=== PATIENT | male | born 1960 | race Hispanic/Latino ===

== ENCOUNTER 2019-02-21 12:45 | Inpatient (IN) ==
[2019-02-21] MEDS ORDERED: ASPIRIN PO ONE (13:00)
[2019-02-21] MEDS ORDERED: TORADOL IV ONE ×2 (13:29→23:46)
[2019-02-21] MEDS ORDERED: NORFLEX IV ONE (13:29)
[2019-02-21] MEDS ORDERED: NS 1,000 ML IV ONE ×2 (13:29→16:32)
--- NOTE | 2019-02-21 13:29 | Diag Imaging Result Doc PS360 ---
EXAM: CHEST-2 VIEWS HISTORY: CP TECHNIQUE: Two views COMPARISON: None. FINDINGS: Poor inspiratory effort. The heart is not enlarged. The vessels are not distended. There are no infiltrates. No pleural effusions. IMPRESSION: No acute abnormality. Electronically signed by Kristopher Reid 02/21/2019 1:27 PM
[2019-02-21 13:50] LABS: ALLEN TEST NO; BLOOD TYPE ARTERIAL; HCO3-(ACT) 13.9 mmoll (20.0-26.0); O2(CT) 21.9 mL/dL (15.0-23.0); O2HB 95.6 % (95.0-99.0); PCO2(98.6) 20 mmHg (35-45); PO2(98.6) 91 mmHg (60-100); SAMPLE BLOOD; THB 16.3 g/dL (11.5-17.4)
[2019-02-21 13:51] LABS: MODALITY ROOM AIR
[2019-02-21 14:50] LABS: BASO# 0.01 X1000 (0.0-0.2); BASO% 0.1 % (0.0-0.8); EOS# 0.02 X1000 (0.0-0.7); EOS% 0.2 % (0.0-10.0); HEMATOCRIT 44.9 % (42.0-52.0); HEMOGLOBIN 14.7 g/dL (14.0-18.0); IMM GRAN# 0.17 X1000 (0.0-0.04); IMM GRAN% 1.5 % (0.0-0.5); LYMPH# 0.46 X1000 (1.2-3.4); LYMPH% 4.1 % (20.5-51.1); MCH 30.6 PG (27-31); MCHC 32.7 g/dL (33-37); MCV 93.3 FL (81-99); MONO# 1.08 X1000 (0.11-0.59); MONO% 9.6 % (1.7-9.3); MPV 10.5 FL (7.4-10.4); NEUT# 9.48 X1000 (1.4-6.5); NEUT% 84.5 % (42.2-75.2); PLT 376 X1000 (130-400); RBC 4.81 XMIL (4.7-6.1); RDW 11.6 % (11.5-14.5); WBC 11.22 X1000 (4.8-10.8)
[2019-02-21 14:56] LABS: INR 1.07; PROTIME 14.1 Seconds (11.0-16.0)
[2019-02-21 14:57] LABS: PTT 27.6 Seconds (22.3-41.8)
[2019-02-21 15:29] LABS: AGAP 29; ALB/GLOB RATIO 1.1; ALBUMIN 3.3 g/dL (3.5-5.0); ALKALINE PHOSPHATASE 168 U/L (32-122); BUN 22 mg/dL (8-22); CALCIUM 9.1 mg/dL (8.8-10.2); CHLORIDE 85 mmol/L (98-107); CK PROFILE 28 U/L (24-204); COSMO 276; ESTIMATED GFR > 60; GLUCOSE 448 mg/dL (70-104); GOT 9 U/L (10-34); GPT 14 U/L (10-44); POTASSIUM 4.6 mmol/L (3.5-5.1); SODIUM 126 mmol/L (136-145); TCO2 12 mmol/L (25-35); TOTAL BILIRUBIN 0.17 mg/dL (0.20-1.00); TOTAL PROTEIN 6.3 g/dL (6.3-8.3)
[2019-02-21] MEDS ORDERED: HUMULIN R IV ONE (15:35)
[2019-02-21 15:48] LABS: ACETONE SERUM MODERATE (NEGATIVE)
[2019-02-21 15:57] LABS: C REACTIVE PROT QUANT 107.56 mg/L (0.00-5.00)
[2019-02-21 16:02] LABS: SED RATE 74 mm/hr (0-15)
--- NOTE | 2019-02-21 16:22 | EKG Report ---
Test Performed on : 02/21/2019 12:52:12 PM Test Reason : CP Blood Pressure : / mmHG Vent. Rate : 107 BPM Atrial Rate : 107 BPM P-R Int : 120 ms QRS Dur : 068 ms QT Int : 344 ms P-R-T Axes : 063 038 033 degrees QTc Int : 459 ms Sinus tachycardia. Otherwise normal ECG When compared with ECG of 19-FEB-2019 01:57, (Unconfirmed) Nonspecific T wave abnormality no longer evident in Anterior leads Unconfirmed Result
[2019-02-21] MEDS ORDERED: SODIUM PHOSPHATE 30 MMOL in D5W 250 ML IV PRN (16:32)
[2019-02-21] MEDS ORDERED: SODIUM BICARBONATE 8.4% 100 MEQ in STERILE WATER INJ. 500 ML IV PRN (16:32)
[2019-02-21] MEDS ORDERED: MAGNESIUM SULFATE 2 GM/S.W.I. 2 GM/50 ML IVPB IV PRN ×2 (16:32→22:36)
[2019-02-21] MEDS ORDERED: POTASSIUM CHLORIDE 20% LIQUID PO PRN ×2 (16:32→22:36)
[2019-02-21] MEDS ORDERED: POTASSIUM CHLORIDE 10% LIQUID PO PRN (16:32)
[2019-02-21] MEDS ORDERED: D50W SYRINGE IV PRN ×2 (16:32→22:36)
[2019-02-21] MEDS ORDERED: POTASSIUM CHLORIDE 20 MEQ/SWI 20 MEQ/100 ML IVPB IV PRN ×3 (16:32→22:36)
[2019-02-21 17:54] LABS: PHOSPHORUS 2.1 mg/dL (2.7-4.5); POTASSIUM 4.4 mmol/L (3.5-5.1)
[2019-02-21 17:55] LABS: UR AMPHETAMINES QUAL NONE DETECTED (NONE DETECT); UR BARBITUATES QUAL NONE DETECTED (NONE DETECT); UR BENZODIAZEPIN QUAL NONE DETECTED (NONE DETECT); UR CANNABINOIDS QUAL NONE DETECTED (NONE DETECT); UR COCAINE QUAL NONE DETECTED (NONE DETECT); UR METHADONE QUAL NONE DETECTED (NONE DETECT); UR OPIATES QUAL NONE DETECTED (NONE DETECT); UR OXYCODONE QUAL NONE DETECTED (NONE DETECT); UR PCP QUAL NONE DETECTED (NONE DETECT)
--- NOTE | 2019-02-21 18:14 | PROVIDER DOCUMENTATION ---
This chart was entered by Bassam Sharma Scribe, acting as scribe for Samuel Santiago MD. HPI-Musculoskeletal Pain/Inj - GENERAL Source: patient - HX OF PRESENT ILLNESS-MUSKULOSKELTAL Quality of Pain: reports: aching Severity in ED: moderate Onset/Duration: other (8 days ago) Timing: still present Modifying Factors: improves with: nothing Any recent injury?: No Similar Symptoms Previously?: No Recently seen or treated by another doctor?: No <Samuel Santiago - Last Filed: 02/21/19 18:51> <Brooklynn Dumas - Last Filed: 02/21/19 20:00> - GENERAL Chief Complaint: Chest Pain Stated Complaint: CP Time Seen by Provider: 02/21/19 13:15 - HX OF PRESENT ILLNESS-MUSKULOSKELTAL Nature of Presenting Problem: Pt is a 58 y/o M presents to the ED with right chest wall tenderness that began 8 days ago. Pt report he was seen 1 week ago in [place] ED, then here at [facility] 4 days ago, and transfered to [facility]. Papers report he was dx with chest wall tenderness and Myocitis and given Predinsone and Naproxen but pt reports it is not helping. (Samuel Santiago) Review of Systems - Adult - REVIEW OF SYSTEMS - ADULT Constitutional: denies: chills, fever Eyes: reports: no symptoms reported Ears, Nose, Mouth & Throat: reports: no symptoms reported Cardiovascular: denies: chest pain, edema Respiratory: denies: cough, shortness of breath, wheezing Gastrointestinal: denies: abdominal pain, nausea, vomiting Genitourinary: denies: dysuria, discharge Musculoskeletal: reports: bone pain (right chest wall). denies: back pain, joint pain Integumentary: reports: no symptoms reported Neurological: denies: ataxia, dizziness/vertigo Psychiatric: reports: no symptoms reported Endocrine: reports: no symptoms reported Hematologic/Lymphatic: reports: no symptoms reported Allergic/Immunologic: reports: no symptoms reported All Other Systems: Reviewed and Negative <Samuel Santiago - Last Filed: 02/21/19 18:51> Past History - Adult - PAST MEDICAL HISTORY-ADULT Review of Records: reports: Old Records Reviewed, Nursing Assessment Review, Medications Reviewed Endocrine/Immune: reports: Diabetes <Samuel Santiago - Last Filed: 02/21/19 18:51> Physical Exam-Injury Related - Physical Exam-Injury Related Initial Vital Signs Reviewed: Yes General Appearance: alert, no apparent distress Eyes: PERRL/EOMI, pink conjunctivae Head, Ears, Nose, Mouth & Throat: moist mucous membranes, normal ENT inspection, TMs normal, pharynx normal Neck: non-tender, full range of motion, supple, normal inspection Respiratory: lungs clear, normal breath sounds, no pleuratic chest pain, no respiratory distress, no accessory muscle use. negative: chest non-tender (right chest wall tender to mild palpation) Cardiovascular: normal peripheral pulses, regular rate, rhythm Abdominal Exam: normal bowel sounds, non tender, soft Extremity: normal range of motion, non-tender, normal gait, normal inspection Integumentary: normal color, warm/dry Neurologic: grossly normal, no motor/sensory deficits Psych/Mental Status: normal mood/affect, normal thought content, normal thought process, oriented x 3 <Samuel Santiago - Last Filed: 02/21/19 18:51> Progress - PLAN OF CARE/RESULTS Result Diagrams: 02/21/19 14:36 02/21/19 17:26 - EKG 1 Time of EKG reading by physician:: 12:52 EKG Read and Signed by:: Samuel Santiago EKG Interpretation (*Must complete 3 of following elements*): Abnormal Rate: 107 Rhythm: Sinus Tachycardia Comments: otherwise normal ECG - XRAY 1 XRAY Study: Chest Impression: Normal ( EXAM: CHEST-2 VIEWS HISTORY: CP TECHNIQUE: Two views COMPARISON: None. FINDINGS: Poor inspiratory effort. The heart is not enl arged. The vessels are not distended. There are no infiltrates. No pleural effusions. IMPRESSION: No acute abnormality. Electronically signed by Kristopher Reid 02/21/2019 1:27 PM 02/21/19 6712 Interpreting Physician: Kristopher Reid MD Dictated Date/Time: 02/21/19 1326 cc: Samuel Santiago MD; None,PCP) - CHANGE OF SHIFT REPORT (ED Provider) 1 Report Given and Care Transferred to:: Dr. Dumas Time of Transfer: 19:00 Items Pending: CT/MRI Results <Samuel Santiago - Last Filed: 02/21/19 18:51> - PLAN OF CARE/RESULTS Result Diagrams: 02/21/19 14:36 02/21/19 17:26 - REASSESSMENT Reassessment #1 Status: unchanged (pt signed out to me by Dr. Santiago pending CTA results. CTA unremarkable, pt with new onset DKA on fluids and inuslin gtt will admit for f urther evaluation and treatment) <Brooklynn Dumas - Last Filed: 02/21/19 20:00> - PLAN OF CARE/RESULTS Progress/Plan/Lab Results: Vital Signs - 8 hr 02/21/19 12:52 02/21/19 14:30 02/21/19 15:08 Temperature 97.9 F Pulse Rate 108 H 105 H 111 H Respiratory Rate 19 24 24 Blood Pressure 103/71 103/68 O2 Sat by Pulse Oximetry 98 100 100 02/21/19 15:11 02/21/19 16:00 02/21/19 16:46 Temperature 98 F Pulse Rate 104 H 105 H 112 H Respiratory Rate 18 24 23 Blood Pressure 103/68 111/66 111/66 O2 Sat by Pulse Oximetry 99 99 99 02/21/19 18:01 02/21/19 18:30 02/21/19 18:31 Temperature Pulse Rate 109 H 111 H 108 H Respiratory Rate 19 20 24 Blood Pressure 92/65 92/65 101/61 O2 Sat by Pulse Oximetry 96 100 97 02/21/19 19:00 02/21/19 19:30 02/21/19 19:45 Temperature Pulse Rate 111 H 103 H 104 H Respiratory Rate 19 21 22 Blood Pressure 113/61 O2 Sat by Pulse Oximetry 97 97 97 Laboratory Results - last 24 hr 02/21/19 02/21/19 02/21/19 13:40 14:36 14:36 WBC 11.22 H RBC 4.81 Hgb 14.7 Hct 44.9 MCV 93.3 MCH 30.6 MCHC 32.7 L RDW Std Deviation 11.6 Plt Count 376 MPV 10.5 H Immature Gran % (Auto) 1.5 H Neut % (Auto) 84.5 H Lymph % (Auto) 4.1 L Morrow % (Auto) 9.6 H Eos % (Auto) 0.2 Baso % (Auto) 0.1 Immature Gran # (Auto) 0.17 H Neut # (Auto) 9.48 H Lymph # (Auto) 0.46 L Morrow # (Auto) 1.08 H Eos # (Auto) 0.02 Baso # (Auto) 0.01 ESR 74 H PT INR PTT (Actin FS) Specimen Type ARTERIAL Sample Site L BRACHIAL pH 7.30 L pCO2 20 L pO2 91 HCO3 13.9 L Base Excess -14.0 L Oxyhemoglobin 95.6 ABG O2 Sat (Calculated) 21.9 ABG O2 Saturation 98.0 ABG Carboxyhemoglobin 1.30 ABG Methemoglobin 1.0 Yonas Test NO A-a O2 Difference 34.0 Total Hemoglobin 16.3 Lactate 1.60 Blood Gas Modality ROOM AIR FiO2 % 21.0 Sodium 126 L Potassium 4.6 Chloride 85 L Carbon Dioxide 12 L Anion Gap 29 BUN 22 Creatinine 1.0 Estimated GFR/1.73 m2 > 60 BUN/Creatinine Ratio 22 Glucose 448 H* POC Glucose Calculated Osmolality 276 Calcium 9.1 Phosphorus Magnesium Total Bilirubin 0.17 L AST 9 L ALT 14 Alkaline Phosphatase 168 H Creatine Kinase 28 Troponin T C-Reactive Prot, Quant 107.56 H Aob-E-Gdmhccvogjn Pept Total Protein 6.3 Albumin 3.3 L Globulin 3.0 Albumin/Globulin Ratio 1.1 Plasma Lactate Urine Source Urine Color Urine Turbidity Urine pH Ur Specific [place] Urine Protein Ur Glucose (Stick) Ur Ketones (Stick) Urine Blood Urine Nitrite Urine Bilirubin Urobilinogen Dipstick Urine Leukocytes Urine WBC (Auto) Urine RBC (Auto) U Epithel Cells (Auto) Urine Bacteria (Auto) Urine Opiates Screen Ur Oxycodone Screen Ur Methadone, Qual Ur Barbiturates Screen Ur Phencyclidine Scrn Ur Amphetamines Screen U Benzodiazepines Scrn Urine Cocaine Screen U Cannabinoids Screen Acetone Level MODERATE A 02/21/19 02/21/19 02/21/19 14:36 14:36 14:36 WBC RBC Hgb Hct MCV MCH MCHC RDW Std Deviation Plt Count MPV Immature Gran % (Auto) Neut % (Auto) Lymph % (Auto) [place] % (Auto) Eos % (Auto) Baso % (Auto) Immature Gran # (Auto) Neut # (Auto) Lymph # (Auto) Morrow # (Auto) Eos # (Auto) Baso # (Auto) ESR PT 14.1 INR 1.07 PTT (Actin FS) 27.6 Specimen Type Sample Site pH pCO2 pO2 HCO3 Base Excess Oxyhemoglobin ABG O2 Sat (Calculated) ABG O2 Saturation ABG Carboxyhemoglobin ABG Methemoglobin Yonas Test A-a O2 Difference Total Hemoglobin Lactate Blood Gas Modality FiO2 % Sodium Potassium Chloride Carbon Dioxide Anion Gap BUN Creatinine Estimated GFR/1.73 m2 BUN/Creatinine Ratio Glucose POC Glucose Calculated Osmolality Calcium Phosphorus Magnesium Total Bilirubin AST ALT Alkaline Phosphatase Creatine Kinase Troponin T < 0.010 C-Reactive Prot, Quant Tgt-Y-Qpyekpjmsto Pept 335 H Total Protein Albumin Globulin Albumin/Globulin Ratio Plasma Lactate Urine Source Urine Color Urine Turbidity Urine pH Ur Specific [place] Urine Protein Ur Glucose (Stick) Ur Ketones (Stick) Urine Blood Urine Nitrite Urine Bilirubin Urobilinogen Dipstick Urine Leukocytes Urine WBC (Auto) Urine RBC (Auto) U Epithel Cells (Auto) Urine Bacteria (Auto) Urine Opiates Screen Ur Oxycodone Screen Ur Methadone, Qual Ur Barbiturates Screen Ur Phencyclidine Scrn Ur Amphetamines Screen U Benzodiazepines Scrn Urine Cocaine Screen U Cannabinoids Screen Acetone Level 02/21/19 02/21/19 02/21/19 16:17 16:57 17:26 WBC RBC Hgb Hct MCV MCH MCHC RDW Std Deviation Plt Count MPV Immature Gran % (Auto) Neut % (Auto) Lymph % (Auto) [place] % (Auto) Eos % (Auto) Baso % (Auto) Immature Gran # (Auto) Neut # (Auto) Lymph # (Auto) [place] # (Auto) Eos # (Auto) Baso # (Auto) ESR PT INR PTT (Actin FS) Specimen Type Sample Site pH pCO2 pO2 HCO3 Base Excess Oxyhemoglobin ABG O2 Sat (Calculated) ABG O2 Saturation ABG Carboxyhemoglobin ABG Methemoglobin Yonas Test A-a O2 Difference Total Hemoglobin Lactate Blood Gas Modality FiO2 % Sodium Potassium Chloride Carbon Dioxide Anion Gap BUN Creatinine Estimated GFR/1.73 m2 BUN/Creatinine Ratio Glucose POC Glucose 347 H Calculated Osmolality Calcium Phosphorus Magnesium Total Bilirubin AST ALT Alkaline Phosphatase Creatine Kinase Troponin T C-Reactive Prot, Quant Wcw-W-Ophoxubymfu Pept Total Protein Albumin Globulin Albumin/Globulin Ratio Plasma Lactate 1.3 Urine Source Urine Color Urine Turbidity Urine pH Ur Specific [place] Urine Protein Ur Glucose (Stick) Ur Ketones (Stick) Urine Blood Urine Nitrite Urine Bilirubin Urobilinogen Dipstick Urine Leukocytes Urine WBC (Auto) Urine RBC (Auto) U Epithel Cells (Auto) Urine Bacteria (Auto) Urine Opiates Screen NONE DETECTED Ur Oxycodone Screen NONE DETECTED Ur Methadone, Qual NONE DETECTED Ur Barbiturates Screen NONE DETECTED Ur Phencyclidine Scrn NONE DETECTED Ur Amphetamines Screen NONE DETECTED U Benzodiazepines Scrn NONE DETECTED Urine Cocaine Screen NONE DETECTED U Cannabinoids Screen NONE DETECTED Acetone Level 02/21/19 02/21/19 02/21/19 17:26 17:26 17:26 WBC RBC Hgb Hct MCV MCH MCHC RDW Std Deviation Plt Count MPV Immature Gran % (Auto) Neut % (Auto) Lymph % (Auto) [place] % (Auto) Eos % (Auto) Baso % (Auto) Immature Gran # (Auto) Neut # (Auto) Lymph # (Auto) Morrow # (Auto) Eos # (Auto) Baso # (Auto) ESR PT INR PTT (Actin FS) Specimen Type Sample Site pH pCO2 pO2 HCO3 Base Excess Oxyhemoglobin ABG O2 Sat (Calculated) ABG O2 Saturation ABG Carboxyhemoglobin ABG Methemoglobin Yonas Test A-a O2 Difference Total Hemoglobin Lactate Blood Gas Modality FiO2 % Sodium Potassium 4.4 Chloride Carbon Dioxide Anion Gap BUN Creatinine Estimated GFR/1.73 m2 BUN/Creatinine Ratio Glucose POC Glucose Calculated Osmolality Calcium Phosphorus 2.1 L Magnesium 1.7 Total Bilirubin AST ALT Alkaline Phosphatase Creatine Kinase Troponin T C-Reactive Prot, Quant Xqv-U-Oslrzwsravq Pept Total Protein Albumin Globulin Albumin/Globulin Ratio Plasma Lactate Urine Source CLEAN CATCH Urine Color YELLOW Urine Turbidity CLEAR Urine pH 5.5 Ur Specific [place] 1.034 Urine Protein TRACE A Ur Glucose (Stick) >1000 A Ur Ketones (Stick) >150 A Urine Blood NEGATIVE Urine Nitrite NEGATIVE Urine Bilirubin NEGATIVE Urobilinogen Dipstick NORMAL Urine Leukocytes NEGATIVE Urine WBC (Auto) <10 Urine RBC (Auto) <10 U Epithel Cells (Auto) <10 Urine Bacteria (Auto) NEGATIVE Urine Opiates Screen Ur Oxycodone Screen Ur Methadone, Qual Ur Barbiturates Screen Ur Phencyclidine Scrn Ur Amphetamines Screen U Benzodiazepines Scrn Urine Cocaine Screen U Cannabinoids Screen Acetone Level Orders Category Date Time Status Cardiac Monitoring DIRECTED Care 02/21/19 13:00 Active Cardiac Monitoring DIRECTED Care 02/21/19 16:32 Active FSBS/Accucheck Result Q15M Care 02/21/19 16:34 Active FSBS/Accucheck Result Q1H Care 02/21/19 16:32 Active Finger Stick Blood Sugar (ED) DIRECTED Care 02/21/19 18:57 Active Hypoglycemia/FSBS <50 or Range of 50-70 PRN Care 02/21/19 16:34 Active Misc. NRSG Communication Order DIRECTED Care 02/21/19 13:33 Active Notify Physician ORDERED Care 02/21/19 16:34 Active Oxygen Therapy- ED Nursing DIRECTED Care 02/21/19 13:00 Active Saline Loc DIRECTED Care 02/21/19 16:34 Active Saline Loc NOW Care 02/21/19 13:00 Active Saline Loc NOW Care 02/21/19 16:32 Active Vital Signs Order Q1H Care 02/21/19 16:32 Active CHEST-2 VIEWS [RAD] Stat Exams 02/21/19 13:00 Completed CTA [CT ANGIOGRM PULMONARY ARTERIES] [CT] Stat Exams 02/21/19 15:36 Completed ABG [RESP] Routine Lab 02/21/19 13:40 Completed ACETONE SERUM [CHEM] Stat Lab 02/21/19 14:36 Completed BLOOD CULTURE [BLDCUL] Stat Lab 02/21/19 16:17 Results C REACTIVE PROT QUANT [CHEM] Stat Lab 02/21/19 14:36 Completed CBC WITH ELECTRONIC DIFF [HEME] Stat Lab 02/21/19 14:36 Completed CK PROFILE [SP CHEM] Stat Lab 02/21/19 14:36 Completed COMPREHENSIVE METABOLIC PANEL [CHEM] Stat Lab 02/21/19 14:36 Completed LACTATE, PLASMA [CHEM] Stat Lab 02/21/19 16:17 Completed MAGNESIUM [CHEM] Stat Lab 02/21/19 17:26 Completed PHOSPHORUS [CHEM] Stat Lab 02/21/19 17:26 Completed POTASSIUM [CHEM] Timed Lab 02/21/19 17:26 Completed POTASSIUM [CHEM] Timed Lab 02/21/19 20:35 Uncollected PRO B-NATRIURETIC PEPTIDE Stat Lab 02/21/19 14:36 Completed PROTIME WITH INR [COAG] Stat Lab 02/21/19 14:36 Completed PTT [COAG] Stat Lab 02/21/19 14:36 Completed SED RATE [HEME] Stat Lab 02/21/19 14:36 Completed TROPONIN T Stat Lab 02/21/19 14:36 Completed URINALYSIS W/POSS RFLX CULT [URINALYSIS] Stat Lab 02/21/19 17:26 Completed URINE DRUG SCREEN Stat Lab 02/21/19 17:26 Completed 0.9% Sodium Chloride Inj [Ns] 1,000 ml Med 02/21/19 16:45 Active IV 500 mls/hr 0.9% Sodium Chloride Inj [Ns] 1,000 ml Med 02/21/19 13:29 Discontinued IV 999 mls/hr 0.9% Sodium Chloride Inj [Ns] 1,000 ml Med 02/21/19 16:32 Discontinued IV 999 mls/hr 0.9% Sodium Chloride Inj [Ns] 100 ml Med 02/21/19 16:45 Active Insulin Human Regular [Humulin R] 100 unit IV Per Protocol mls/hr Aspirin Med 02/21/19 13:00 Discontinued 325 mg PO NOW ONE Dextrose 50% Syringe [D50w Syringe] Med 02/21/19 16:32 Active 25 ml IV PRN PRN Insulin Human Regular [Humulin R] Med 02/21/19 15:35 Discontinued 10 unit IV NOW ONE Ketorolac [Toradol] Med 02/21/19 13:29 Discontinued 30 mg IV NOW ONE Magnesium Sulfate 2 gm/S.w.i. Med 02/21/19 19:45 Active 2 gm in 50 ml IV NOW Magnesium Sulfate 2 gm/S.w.i. Med 02/21/19 16:32 Active 2 gm in 50 ml IV ONCE PRN Orphenadrine [Norflex] Med 02/21/19 13:29 Discontinued 60 mg IV NOW ONE Potassium Chloride 10% Liquid Med 02/21/19 16:32 Discontinued 20 meq PO ONCE PRN PRN Potassium Chloride 20 Meq/Swi Med 02/21/19 16:32 Active 20 meq in 100 ml IV ONCE PRN Potassium Chloride 20 Meq/Swi Med 02/21/19 16:32 Active 20 meq in 100 ml IV ONCE PRN Potassium Chloride 20% Liquid Med 02/21/19 16:32 Active 40 meq PO ONCE PRN PRN Sodium Bicarbonate 8.4% 100 meq Med 02/21/19 16:32 Active Water, Sterile Inj [Sterile Water Inj] 500 ml IV ONCE PRN Sodium Phosphate 30 mmol Med 02/21/19 16:32 Active Dextrose 5%-Water Inj [D5w] 250 ml IV ONCE PRN CP/SOB/Palp >45 yrs of Age Stat Oth 02/21/19 13:00 Ordered Hypoglycemia Stat Oth 02/21/19 16:32 Ordered EKG [EKG] Stat Ther 02/21/19 13:00 Draft Departure - Departure Date of Disposition Decision: 02/21/19 Certified Medical Emergency: Emergent - Critical Care Note This patient required my direct & personal management of CC.: Yes Total Time (mins): 50 Critical Care Statement: This patient required my direct personal management to treat or rule out processes, the absence of which, could potentiallly result in sudden, clinically significant life or limb threatening deterioration. <Samuel Santiago - Last Filed: 02/21/19 18:51> - Departure Time of Disposition Decision: 20:00 <Brooklynn Dumas - Last Filed: 02/21/19 20:00> - Departure DIAGNOSIS: Right-sided chest wall pain, Type 2 diabetes mellitus with ketoacidosis without coma, without long-term current use of insulin Disposition: ADMITTED INPATIENT 09 Condition: Serious Attestation - Physician/ SRINI Attestation Patient care was provided by Advanced Practice Provider:: No The physician spent face to face time with patient:: Yes Advanced Practice Provider documentation review:: Supervising physician onsite and consulted in the evaluation and care of this patient. The physician did have a face to face encounter with the patient. <Samuel Santiago - Last Filed: 02/21/19 18:51> This chart was documented by the indicated scribe, (Bassam Sharma Scribe) and accurately reflects the services I performed and decisions made by me, Samuel Santiago MD, as attested by the provider's signature.
[2019-02-21] MEDS: HUMULIN R 100 UNIT in NS 100 ML IV SCH ×2 (18:19→20:23)
[2019-02-21 18:50] LABS: URINE SOURCE CLEAN CATCH
[2019-02-21 18:53] LABS: BILIRUBIN URINE NEGATIVE (NEGATIVE); BLOOD URINE NEGATIVE (NEGATIVE); COLOR YELLOW; GLUCOSE URINE >1000 mg/dL (NEGATIVE); KETONE URINE >150 mg/dL (NEGATIVE); LEUKOCYTES URINE NEGATIVE (NEGATIVE); NITRITE URINE NEGATIVE (NEGATIVE); PH URINE 5.5; PROTEIN URINE TRACE mg/dL (NEGATIVE); SP GRAVITY URINE 1.034; TURBIDITY URINE CLEAR (CLEAR); UR EPITHELIAL CELLS <10 /HPF (<10); URINE BACTERIA NEGATIVE /HPF; URINE RBC <10 /HPF (<10); URINE WBC <10 /HPF (<10); UROBILINOGEN URINE NORMAL (NORMAL)
--- NOTE | 2019-02-21 19:38 | Diag Imaging Result Doc PS360 ---
EXAM: CT ANGIOGRM PULMONARY ARTERIES HISTORY: right chest pain TECHNIQUE: CT chest with intravenous contrast. Pulmonary arterial protocol with MIP images. COMPARISON: 02/18/2017 FINDINGS: Normal opacification of the pulmonary arteries and their major branches. No aortic aneurysm or dissection. No pleural effusions. No pneumonia. No cardiomegaly. Trace pericardial fluid. No enlarged lymph nodes. IMPRESSION: No pulmonary emboli. This exam was performed using automated exposure control, adjustment of mA or kV according to patient size, and/or use of iterative reconstruction technique. Electronically signed by Kristopher Reid 02/21/2019 7:35 PM
[2019-02-21] MEDS ORDERED: MAGNESIUM SULFATE 2 GM/S.W.I. 2 GM/50 ML IVPB IV ONE (19:45)
[2019-02-21] MEDS: NS 1,000 ML IV SCH (22:15)
[2019-02-21] MEDS ORDERED: ZOFRAN IV PRN (22:36)
[2019-02-21] MEDS ORDERED: NAPROSYN PO SCH (22:36)
[2019-02-21] MEDS ORDERED: TYLENOL PO PRN (22:36)
[2019-02-21] MEDS ORDERED: POTASSIUM CHLORIDE 40 MEQ/SWI 40 MEQ/100 ML IVPB IV PRN (22:36)
[2019-02-21] MEDS ORDERED: D5 1/2 NS + KCL 10 MEQ 1,000 ML IV PRN (22:36)
[2019-02-21] MEDS ORDERED: HUMULIN R 100 UNIT in NS 100 ML IV SCH (22:36)
[2019-02-21 23:11] LABS: HEMOGLOBIN A1C 12.5 % (4.8-6.0)
[2019-02-21] MEDS: NAPROSYN PO SCH (23:37)
[2019-02-21 23:39] LABS: AGAP 25; BUN 18 mg/dL (8-22); CALCIUM 8.7 mg/dL (8.8-10.2); CHLORIDE 100 mmol/L (98-107); COSMO 280; CREATININE 0.8 mg/dL (0.7-1.2); ESTIMATED GFR > 60; GLUCOSE 237 mg/dL (70-104); MAGNESIUM 2.4 mg/dL (1.5-2.7); PHOSPHORUS 1.7 mg/dL (2.7-4.5); POTASSIUM 4.5 mmol/L (3.5-5.1); SODIUM 135 mmol/L (136-145); TCO2 10 mmol/L (25-35)
[2019-02-21] MEDS ORDERED: SODIUM PHOSPHATE 20 MMOL in NS 250 ML IV ONE (23:44)
[2019-02-21] MEDS ORDERED: PRILOSEC PO ONE (23:46)
[2019-02-22] MEDS: POTASSIUM CHLORIDE 10% LIQUID PO PRN ×5 (00:04→17:24)
[2019-02-22] MEDS: NS 1,000 ML IV SCH (00:22)
[2019-02-22] MEDS: POTASSIUM CHLORIDE 10 MEQ in NS 1,000 ML IV SCH ×4 (02:35→17:57)
[2019-02-22 02:58] LABS: AGAP 22; BUN 16 mg/dL (8-22); CHLORIDE 101 mmol/L (98-107); COSMO 276; CREATININE 0.8 mg/dL (0.7-1.2); ESTIMATED GFR > 60; GLUCOSE 256 mg/dL (70-104); POTASSIUM 4.4 mmol/L (3.5-5.1); SODIUM 133 mmol/L (136-145); TCO2 10 mmol/L (25-35)
[2019-02-22 05:03] LABS: ALLEN TEST YES; BE -11.5 mmoll (-3.0-3.0); BLOOD TYPE ARTERIAL; HCO3-(ACT) 15.9 mmoll (20.0-26.0); METHB 1.5 % (0.0-1.5); PCO2(98.6) 27 mmHg (35-45); PO2(98.6) 87 mmHg (60-100); SAMPLE BLOOD; SAO2 97.7 % (95.0-100.0); THB 14.2 g/dL (11.5-17.4)
[2019-02-22 05:04] LABS: MODALITY ROOM AIR
--- NOTE | 2019-02-22 05:16 | HISTORY AND PHYSICAL ---
CHIEF COMPLAINT: Right chest pain. HISTORY OF PRESENT ILLNESS: This is a 58-year-old male who comes into the emergency room with right-sided chest pain that goes into his shoulder. It began 8 days ago. He was seen in [place] a week ago and then 4 days ago here at [facility]. I believe he was transferred to [facility]. He had chest wall tenderness and myositis, per them. Laboratory data was collected in the emergency room and the patient was actually found to be in DKA. The patient states that he did know that he was diabetic. However, he does not take any type of medications to treat this. His hemoglobin A1c was 12.5 on exam. He will be admitted to PCU for further evaluation and treatment. PAST MEDICAL HISTORY: Myositis, chest wall pain, diabetes mellitus. PREVIOUS SURGICAL HISTORY: Appendectomy. SOCIAL HISTORY: No alcohol, tobacco or illicit drugs. FAMILY HISTORY: Father had diabetes mellitus as well. ALLERGIES: No known drug allergies. HOME MEDICATIONS: Prednisone and naproxen. REVIEW OF SYSTEMS: Fourteen-point review of systems conducted with the patient. Pertinent positives listed above in the HPI. All other systems reviewed and found to be negative. PHYSICAL EXAMINATION: VITAL SIGNS: Temperature 97.8, pulse 99, respirations 22, blood pressure 112/66, oxygen saturation 97% on room air. GENERAL: A 58-year-old male. His preferred language is Danish. I spoke to him using the interpretation line. He is alert and oriented times 3, very pleasant. Answers all questions appropriately. He is in no acute distress. HEENT: Head is atraumatic, normocephalic. Pupils equal, round, reactive to light. Extraocular eye movement is intact. Sclera is anicteric. Conjunctiva is pink. Oral mucosa is dry. NECK: Supple. No JVD. No thyromegaly. Trachea is midline. No cervical lymphadenopathy. CARDIAC: S1, S2 appreciated. No murmurs, gallops or rubs. LUNGS: Clear to auscultation bilaterally. No rhonchi, wheezes or rales. Symmetric rise and fall with respirations. ABDOMEN: Soft, nondistended, nontender. Bowel sounds present all 4 quadrants, normoactive. No pulsatile mass or organomegaly. EXTREMITIES: No clubbing, cyanosis or edema. Two-plus pedal pulses bilaterally. GENITOURINARY: No bladder distention. Patient voids. Otherwise deferred. NEUROLOGICAL: Alert and oriented times 3. No focal motor deficits. Otherwise nonfocal examination. LABORATORY DATA: WBC 11.22. Hemoglobin 14.7. Hematocrit 44.9. Platelet count 376. ABG: pH 7.30, pCO2 of 20, PO2 of 91, bicarbonate 13.9. This was on room air. Sodium 135. Potassium 4.5. Chloride 100. Carbon dioxide 10. BUN 18. Creatinine 0.8. Glucose 448. C-reactive protein 107.56. Urine: Greater than 1000 glucose, greater than 150 ketones, acetone level moderate. Chest x-ray: No acute abnormality. Pulmonary arteriogram: No pulmonary embolus. ASSESSMENT: 1. Diabetic ketoacidosis. 2. Myositis. 3. Uncontrolled diabetes mellitus. 4. Fluid volume depletion. 5. Chest wall and shoulder pain. PLAN: Admit patient to CICU. Continue to treat per DKA protocol. We will switch him over to sliding scale insulin once his anion gap is closed. We will give him a dose of Toradol then continue his naproxen. We will also give him [place] 7.5 that he can use for pain related to his right shoulder and chest wall. We will hold steroids at this time as they are likely what pushed the patient into DKA. We will hold NPO except for medications. Can advance to diabetic and clear liquids. Further recommendations per patient clinical course. Dictated by EDMUNDO Chapin for Anton Davis MD cc: EDMUNDO Chapin MD
[2019-02-22] MEDS: PRILOSEC PO SCH (06:18)
[2019-02-22] MEDS ORDERED: VANCOMYCIN IV PER PHARMACY MISC SCH (07:00)
[2019-02-22 07:07] LABS: ESTIMATED GFR > 60
[2019-02-22 07:08] LABS: AGAP 15; BUN 15 mg/dL (8-22); CHLORIDE 99 mmol/L (98-107); COSMO 261; CREATININE 0.7 mg/dL (0.7-1.2); GLUCOSE 190 mg/dL (70-104); MAGNESIUM 2.1 mg/dL (1.5-2.7); POTASSIUM 4.1 mmol/L (3.5-5.1); SODIUM 127 mmol/L (136-145); TCO2 13 mmol/L (25-35)
[2019-02-22] MEDS ORDERED: VANCOMYCIN 2,000 MG in NS 500 ML IV ONE (08:00)
[2019-02-22] MEDS: D5 1/2 NS 1,000 ML IV SCH ×2 (08:14→15:45)
[2019-02-22] MEDS: NAPROSYN PO SCH ×2 (08:14→21:53)
[2019-02-22 08:27] LABS: CALCIUM 8.1 mg/dL (8.8-10.2)
[2019-02-22 08:27] LABS: CALCIUM 8.1 mg/dL (8.8-10.2)
--- NOTE | 2019-02-22 08:40 | PROGRESS NOTE ---
DATE: 02/22/2019 SUBJECTIVE: The patient has been admitted due to DKA, and apparently this is not the first time. He is not on any medications for his diabetes. He is still getting the insulin drip. He is still on the DKA protocol. He is complaining of right shoulder pain and also he is bacteremic. He has 2/2 gram-positive cocci in blood. He has been placed on vancomycin. I will get an echocardiogram. I reviewed the order for the DKA protocol, and I did some mild changes. I ordered an echocardiogram and a right shoulder x-ray. I want Orthopedic Surgery to evaluate this patient to rule out septic arthritis. As per the patient, he has been having pain in that shoulder for at least 9 to 10 days, as per the patient since 02/13/2019. OBJECTIVE: Vital Signs: Temperature 97.9 degrees, pulse 91, respiratory rate 21, blood pressure 99/65, oxygen saturation 98 on room air. HEENT: Head normocephalic, no trauma. PERRLA. Neck: Supple. No JVD. No masses. Central trachea. He does have a mass that looks like a lipoma on the back of his neck, which is slightly painful to palpation, but no signs of infection. Chest: Clear to auscultation. No wheezing. No rales. Right shoulder pain, and there is some swelling at the level of the acromioclavicular joint which is painful to palpation and mobilization. Cardiovascular: RRR, No murmurs. Abdomen: Soft, nontender, nondistended. No hepatosplenomegaly. Extremities: No edema, no clubbing, no cyanosis. Neurological examination: The patient is alert; he is oriented x3. No focal deficits. LABORATORY: His initial white blood cell count upon admission yesterday was 11.2 with a hemoglobin of 14.7 and hematocrit of 44.9. The pH today is 7.3 with a bicarbonate of 15.9, pCO2 27. Sodium 127, potassium 4.9, chloride 99, bicarbonate 13. BUN 15, creatinine 0.7, anion gap 15, glucose 190, calcium 7.3, phosphorus 1.8, magnesium 2.1. ASSESSMENT AND PLAN: 1. Sepsis. This patient meets criteria for sepsis with leukocytosis, tachycardia and also he has a source of infection. Also probably he came in dehydrated due to his diabetic ketoacidosis. He does have a gram-positive cocci bacteremia 2/2. Also, right shoulder pain concerning for septic arthritis. I have requested an echocardiogram, also an x-ray of that shoulder. I saw the CT of the chest and I did not see any lesion on that shoulder, but I will let Orthopedic Surgery Department to evaluate this patient to rule it out. Probably he needs to be tapped. 2. Bacteremia. I do not see any skin lesion or mouth lesion at this moment, but he does have right shoulder pain concerning for septic arthritis. He has been placed on antibiotics-- vancomycin, and I agree with that. His blood culture shows 2/2 gram-positive cocci. Also, I have requested an echocardiogram. 3. Diabetic ketoacidosis. Continue with the diabetic ketoacidosis protocol. Blood sugar seems to be better. He is not taking any kind of medications as an outpatient. 4. Uncontrolled type 2 diabetes. His hemoglobin A1c is 12.5. I had a large conversation with the patient about treatment options, and he seems to understand. We discussed diet as well. 5. Dehydration. He seems to be better. 6. Right shoulder pain concerning for septic arthritis. I have requested an evaluation by Orthopedic Surgery Department, and also I have requested an x-ray. I reviewed the CT of the chest and I did not see any evident lesion, but I will let the orthopedic surgeon to check on this patient. As per the patient he has been having this pain for 9 days now. 7. Medical noncompliance. This patient is not taking any kind of medication for his diabetes. We need to make sure that he goes home with the appropriate medications. 8. Electrolyte imbalance. This patient came in with a pseudohyponatremia and also some hypophosphatemia. We will monitor that closely. TIME TAKING CARE OF THIS PATIENT IN THIS CRITICAL UNIT: 30 minutes. cc: Yousif Partida MD
[2019-02-22] MEDS: 1/2 NS 1,000 ML IV SCH ×2 (08:57→15:02)
--- NOTE | 2019-02-22 09:53 | Diag Imaging Result Doc PS360 ---
SHOULDER 1 VIEW RIGHT - 02/22/2019 INDICATION: Shoulder pain TECHNIQUE: COMPARISON: None FINDINGS: The bones are intact and normally aligned. No suspicious findings seen. There is mild degeneration at the acromioclavicular joint. The glenohumeral joint is well-preserved. IMPRESSION: No acute disease. Electronically signed by Abdoulaye Christianson 02/22/2019 9:51 AM
--- NOTE | 2019-02-22 12:02 | ORTHOPAEDICS CONSULTATION ---
DATE: 02/22/2019 CHIEF COMPLAINT: Right shoulder pain. HISTORY OF PRESENT ILLNESS: Mr. Sinha is a 58-year-old male who presented to the [facility] Emergency Room with right-sided chest pain that extended to his shoulder. He says it started about 8 days ago. He reported to me that he did have a fall. Apparently, he was seen at the [facility] and was found to be in DKA at that time. The patient did not know he was diabetic. His hemoglobin A1c was 12.5. He was admitted to [facility] at that time. During his hospital stay, he has also been found to be bacteremic. He had positive blood cultures. He was placed on vancomycin for empiric antibiotic therapy. He also had an insulin drip. He was started on DKA protocol, and is being treated for sepsis. He does continue to complain of right shoulder pain. Orthopedic Surgery was consulted for the right shoulder pain to rule out a possible septic shoulder. PAST MEDICAL HISTORY: 1. Chest wall pain. 2. Myositis. 3. Diabetes mellitus, uncontrolled. PAST SURGICAL HISTORY: Appendectomy. SOCIAL HISTORY: Denies tobacco, alcohol, or illicit drug use. FAMILY HISTORY: Noncontributory. ALLERGIES: No known drug allergies. HOME MEDICATIONS: 1. Prednisone. 2. Naproxen. REVIEW OF SYSTEMS: A 10-point review of system was conducted and negative, except for what was mentioned above in the HPI. PHYSICAL EXAMINATION: Current Vital Signs: Temperature is 97.6 degrees, pulse 105, respirations 20, blood pressure 108/57, saturating 98% on room air. General: This is a 58-year-old male in no acute distress. His primary language is Kazakh, and he speaks little Romansh. Neurological: He is alert and oriented x3. Moves all extremities equally. HEENT: Head is atraumatic, normocephalic. Pupils are equal, round, reactive to light. Cardiovascular: Regular rate and rhythm, a little tachycardic. Lungs: Breathing is even and nonlabored. Equal chest wall expansion. Abdomen: Appears nondistended. Extremities: He denies tenderness to any extremity, except for the right shoulder. He does have tenderness to palpation. He does have a little bit of decreased range of motion related to pain. His hand intrinsics are intact. There is no obvious erythema or effusion to that shoulder. LABORATORY DATA: His white count is 11.22, hemoglobin and hematocrit 14.7 and 44.9, platelet count 376,000. INR is 1.07. BUN and creatinine 15 and 0.7. His hemoglobin A1c was 12.5. IMAGING: A chest x-ray shows no obvious degenerative joint changes or fracture to the right shoulder. A right shoulder film also showed no obvious acute disease or chronic changes. ASSESSMENT: 1. Right shoulder pain. 2. Possible septic shoulder joint. PLAN: I discussed with Mr. Sinha about doing a joint aspiration. This will be the quickest way to determine whether or not this is a septic joint we are dealing with. I am going to go ahead and draw up some Decadron so that if I do not get the joint fluid back and we are not suspicious of a septic joint, we will go ahead and inject 80 mg of Depo-Medrol into that shoulder. That way, we can go ahead and treat the shoulder pain with the steroid if needed. If when we aspirate, we do get quite a bit of fluid, we will send that for culture. We will know further treatment options after we aspirate the joint. Thank you for the consult. Dictated by EDMUNDO Montgomery for Stephan Clemons MD cc: EDMUNDO Montgomery MD
[2019-02-22 13:04] LABS: ESTIMATED GFR > 60
[2019-02-22 13:07] LABS: AGAP 15; BUN 14 mg/dL (8-22); CALCIUM 7.7 mg/dL (8.8-10.2); CHLORIDE 106 mmol/L (98-107); COSMO 277; CREATININE 0.5 mg/dL (0.7-1.2); GLUCOSE 206 mg/dL (70-104); MAGNESIUM 1.9 mg/dL (1.5-2.7); SODIUM 135 mmol/L (136-145); TCO2 14 mmol/L (25-35)
[2019-02-22] MEDS: NORCO-7.5 PO PRN ×3 (13:25→21:53)
[2019-02-22 15:23] LABS: AGAP 12; BUN 13 mg/dL (8-22); CHLORIDE 103 mmol/L (98-107); COSMO 269; CREATININE 0.7 mg/dL (0.7-1.2); ESTIMATED GFR > 60; GLUCOSE 219 mg/dL (70-104); MAGNESIUM 1.9 mg/dL (1.5-2.7); SODIUM 131 mmol/L (136-145); TCO2 16 mmol/L (25-35)
[2019-02-22] MEDS ORDERED: SODIUM PHOSPHATE 30 MMOL in D5W 250 ML IV ONE (17:00)
[2019-02-22] MEDS: HUMULIN 70/30 SUBQ SCH (19:42)
--- NOTE | 2019-02-22 20:30 | ECHO REPORT ---
ORDER DATE: 02/22/2019 REQUESTING PHYSICIAN: Dr. Yepez. INDICATION: Question of endocarditis. M-MODE MEASUREMENTS: Left ventricle end diastole: 4.2. Left ventricle end systole: 2.6. Posterior wall: 1.0. Interventricular septum: 1.0. Left atrium: 4.0. Aortic diameter: 3.4. SUMMARY OF 2-DIMENSIONAL IMAGIN. Left ventricular function is hyperdynamic. Ejection fraction is 65% to 70%. There is no wall motion abnormality noted. 2. The aortic valve looks normal. Color flow mapping is unremarkable. 3. The mitral valve looks normal. Color flow mapping unremarkable. 4. Pulse wave Doppler of mitral inflow is normal. 5. Tissue Doppler of septal and lateral mitral annulus averages 8 cm. 6. There is no diastolic dysfunction. 7. The tricuspid valve shows minimal degree of regurgitation. 8. The inferior vena cava is not dilated. 9. Pulmonary pressure is estimated at 37 mmHg. 10.The right-sided chambers are slightly prominent. 11.There is a small pericardial effusion. 12.The atria appear to be grossly normal. 13.The pulmonic valve is grossly unremarkable. However, it is suboptimally visualized. Clinical correlation recommended. cc: MD Yousif Burr MD MTDD
[2019-02-22] MEDS: HUMULIN R SUBQ SCH (21:52)
[2019-02-22] MEDS: VANCOMYCIN 1,250 MG in NS 250 ML IV SCH (21:52)
[2019-02-23] MEDS: HUMULIN 70/30 SUBQ SCH ×2 (06:14→17:05)
[2019-02-23] MEDS: NORCO-7.5 PO PRN ×3 (06:15→20:10)
[2019-02-23] MEDS: HUMULIN R SUBQ SCH ×4 (06:15→20:12)
[2019-02-23] MEDS: PRILOSEC PO SCH (06:15)
[2019-02-23 06:32] LABS: BASO# 0.02 X1000 (0.0-0.2); BASO% 0.2 % (0.0-0.8); HEMATOCRIT 39.1 % (42.0-52.0); HEMOGLOBIN 13.1 g/dL (14.0-18.0); IMM GRAN# 0.13 X1000 (0.0-0.04); IMM GRAN% 1.3 % (0.0-0.5); LYMPH# 0.56 X1000 (1.2-3.4); LYMPH% 5.7 % (20.5-51.1); MCH 30.9 PG (27-31); MCHC 33.5 g/dL (33-37); MCV 92.2 FL (81-99); MONO# 1.11 X1000 (0.11-0.59); MONO% 11.3 % (1.7-9.3); MPV 10.7 FL (7.4-10.4); NEUT# 7.87 X1000 (1.4-6.5); NEUT% 80.5 % (42.2-75.2); PLT 311 X1000 (130-400); RBC 4.24 XMIL (4.7-6.1); RDW 11.9 % (11.5-14.5); WBC 9.79 X1000 (4.8-10.8)
[2019-02-23 07:14] LABS: AGAP 14; BUN 10 mg/dL (8-22); CALCIUM 8.3 mg/dL (8.8-10.2); CHLORIDE 104 mmol/L (98-107); COSMO 276; CREATININE 0.5 mg/dL (0.7-1.2); ESTIMATED GFR > 60; GLUCOSE 193 mg/dL (70-104); PHOSPHORUS 1.7 mg/dL (2.7-4.5); POTASSIUM 3.8 mmol/L (3.5-5.1); SODIUM 136 mmol/L (136-145); TCO2 18 mmol/L (25-35)
[2019-02-23] MEDS ORDERED: POTASSIUM PHOSPHATE 15 MMOL in NS 250 ML IV ONE (08:04)
--- NOTE | 2019-02-23 08:21 | PROGRESS NOTE ---
DATE: 02/23/2019 SUBJECTIVE: His DKA has resolved. He is feeling better. He is hungry. He is not having nausea or vomiting. His shoulder pain has been infiltrated yesterday by the orthopedic surgery department. It is still painful but better. Echocardiogram did not show any vegetations. His ejection fraction is fine. Shoulder x-ray did not show any acute abnormality. He is bacteremic. We found gram-positive cocci in blood x2. He has been placed on vancomycin and I will continue with the same management. OBJECTIVE: Vital Signs: Temperature 97.8 degrees, pulse 84, respiratory rate 13, blood pressure 105/70, oxygen saturation 97% on room air. HEENT: Head normocephalic. No trauma. PERRLA. Neck: Supple. No JVD. No masses. Central trachea. He does have a mass that looks like a lipoma on the back of his neck. No signs of infection in that area. Chest: Clear to auscultation. No wheezing. No rales. Right shoulder pain. There is some mild swelling at the level of the acromioclavicular joint which is painful to palpation and mobilization. Cardiovascular: RRR. No murmurs. Abdomen: Soft, nontender, nondistended. No hepatosplenomegaly. Extremities: No edema, no clubbing, no cyanosis. Neurological Examination: The patient is alert. He is oriented x3. No focal deficits. Laboratory: WBC 9.7, hemoglobin 13.1, hematocrit 39.1, platelets 311,000. Sodium 136, potassium 3.8, chloride 104, bicarbonate 18, BUN 10, creatinine 0.5, glucose 193, calcium 8.3, phosphorus 1.7, magnesium 2. ASSESSMENT AND PLAN: 1. Sepsis. This patient met criteria for sepsis with leukocytosis, tachycardia, and source of infection. Also, probably he came in dehydrated due to diabetic ketoacidosis. He has gram- positive cocci bacteremia, two out of two. Also, his right shoulder is inflamed but this has been evaluated by the orthopedic surgery department. We tried to rule out septic arthritis. Echocardiogram did not show any abnormality nor the shoulder x-ray. 2. Bacteremia. I do not see any skin lesion or mouth lesion at this moment but he does have right shoulder pain concerning for septic arthritis, but this has been evaluated by the orthopedic surgery department. He has been placed on vancomycin and I agree with that. Culture showed two out of two gram-positive cocci. 3. Diabetic ketoacidosis, resolved. I have placed this patient on insulin 70/30. Blood sugar seems to be more stable. I have advanced his diet to a diabetic diet. 4. Uncontrolled type 2 diabetes with a hemoglobin A1c of 12.5. I had a large conversation with this patient about treatment options and he seems to understand. We also discussed his diet as well. 5. Dehydration, resolved. 6. Right shoulder pain concerning for septic arthritis, already evaluated by the orthopedic surgery department. 7. Medical noncompliance. This patient is not taking any kind of medication for diabetes, even though he knows he has this problem. 8. Electrolyte imbalance. Sodium level seems to be normal today. Phosphorus is a little bit low and I will replace it. 9. The patient seems to be doing better. I will continue treating this patient on the floor. I think he is okay to be transferred. He is not having fever or chills. I will wait for the final culture and sensitivity. cc: Yousif Partida MD
--- NOTE | 2019-02-23 08:27 | ORTHOPAEDICS PROGRESS NOTE ---
DATE: 02/23/2019 SUBJECTIVE: Mr. Sinha is lying in bed this morning. It seems like he may be doing a little bit better on his shoulder. It is still bothering him some. OBJECTIVE: Right Upper Extremity: He is able to move it a little better in bed this morning, but it is still not great. He does remain neurovascular intact, right upper extremity. ASSESSMENT: Right shoulder pain. PLAN: We aspirated the shoulder yesterday and did not get any fluid out. I was pretty confident that we were in the shoulder joint. We did end up injecting some steroid in that area to try to help with some of his pain. As long as he is in the hospital, will continue to follow. As soon as he is discharged, I am okay with following him in clinic for this right shoulder pain. cc: Stephan Clemons MD
[2019-02-23] MEDS: VANCOMYCIN 1,250 MG in NS 250 ML IV SCH (09:05)
[2019-02-23] MEDS: NAPROSYN PO SCH ×2 (09:07→20:09)
[2019-02-23] MEDS ORDERED: INSULIN PEN NEEDLES ONE (17:20)
[2019-02-23] MEDS: VANCOMYCIN 1,600 MG in NS 250 ML IV SCH (22:34)
[2019-02-24] MEDS: NORCO-7.5 PO PRN ×3 (03:41→20:33)
[2019-02-24] MEDS: PRILOSEC PO SCH (06:38)
[2019-02-24] MEDS: HUMULIN 70/30 SUBQ SCH ×2 (06:39→17:19)
[2019-02-24] MEDS: HUMULIN R SUBQ SCH ×4 (06:40→20:39)
[2019-02-24 07:22] LABS: BASO# 0.02 X1000 (0.0-0.2); BASO% 0.2 % (0.0-0.8); EOS# 0.17 X1000 (0.0-0.7); EOS% 1.5 % (0.0-10.0); HEMATOCRIT 43.6 % (42.0-52.0); HEMOGLOBIN 14.7 g/dL (14.0-18.0); IMM GRAN# 0.21 X1000 (0.0-0.04); IMM GRAN% 1.8 % (0.0-0.5); LYMPH# 1.34 X1000 (1.2-3.4); LYMPH% 11.5 % (20.5-51.1); MCH 30.9 PG (27-31); MCHC 33.7 g/dL (33-37); MCV 91.6 FL (81-99); MONO# 1.48 X1000 (0.11-0.59); MONO% 12.7 % (1.7-9.3); MPV 10.5 FL (7.4-10.4); NEUT# 8.43 X1000 (1.4-6.5); NEUT% 72.3 % (42.2-75.2); PLT 322 X1000 (130-400); RBC 4.76 XMIL (4.7-6.1); WBC 11.65 X1000 (4.8-10.8)
[2019-02-24 07:44] LABS: AGAP 11; BUN 11 mg/dL (8-22); CALCIUM 8.5 mg/dL (8.8-10.2); CHLORIDE 95 mmol/L (98-107); COSMO 268; CREATININE 0.5 mg/dL (0.7-1.2); ESTIMATED GFR > 60; GLUCOSE 213 mg/dL (70-104); POTASSIUM 3.5 mmol/L (3.5-5.1); SODIUM 131 mmol/L (136-145); TCO2 25 mmol/L (25-35)
[2019-02-24] MEDS: NAPROSYN PO SCH ×2 (09:09→20:33)
[2019-02-24] MEDS: VANCOMYCIN 1,600 MG in NS 250 ML IV SCH (09:09)
[2019-02-24] MEDS: KEFZOL 2 GM/D5W 2 GM/50 ML IVPB IV SCH ×2 (13:02→20:24)
--- NOTE | 2019-02-24 13:25 | PROGRESS NOTE ---
DATE: 02/24/2019 SUBJECTIVE: No acute events overnight. He is still complaining of some right shoulder pain, he has bacteremia due to MSSA. Infectious Disease Department has evaluated this patient and they have placed this patient on cefazolin every 8 hours. I will repeat the blood culture today and monitor this for 48 hours. Also, I did an echocardiogram that did not show any vegetations. OBJECTIVE: Vital Signs: Temperature 97.9 degrees, pulse 86, respiratory rate 18, blood pressure 129/76. Oxygen saturation 98 on room air. HEENT: Head normocephalic, no trauma. PERRLA. Neck: Supple. No JVD. No masses. Central trachea. He does have a mass that looks like a lipoma on his on the back of his neck. No signs of infection in that area. Chest: Clear to auscultation. No wheezing. No rales. Right shoulder pain to palpation and mobilization. He seems to have some mild swelling at the level of the acromioclavicular joint which is painful to palpation and mobilization as well. Cardiovascular: Regular rate and rhythm. No murmurs. Abdomen: Soft, nontender, nondistended. No hepatosplenomegaly. Extremities: No edema. No clubbing. No cyanosis. Neurological: The patient is alert. He is oriented x3. No focal deficits. LABORATORY DATA: WBC 11.6, hemoglobin 14.7, hematocrit 43.6, platelets 322,000. Sodium 131, potassium 3.5, chloride 95, bicarbonate 25, BUN 11, creatinine 0.5, glucose 213, calcium 8.5. ASSESSMENT AND PLAN: 1. Sepsis. This patient meets criteria for sepsis with leukocytosis, tachycardia, and a source of infection, he also came in dehydrated due to diabetic ketoacidosis. He has a g hand sore. He has methicillin-sensitive Staphylococcus aureus bacteremia. Infectious Disease Department has evaluated this patient and has recommended to start treatment with Ancef. Initially, he received vancomycin. 2. Bacteremia, as above. I will repeat the blood cultures today. 3. Diabetic ketoacidosis, resolved. I have placed this patient on insulin 70/30, blood sugar seems to be more stable. I increased the dose of the morning dose today, I advance his diet to a diabetic diet, and he is tolerating this. 4. Uncontrolled type 2 diabetes with a hemoglobin A1c of 12.5, I had a really large conversation with this patient about his treatment options and he seems to understand. He will go home with p.o. treatment and also insulin. 5. Dehydration resolved. 6. Right shoulder pain, already evaluated by Orthopedic Surgery Department and a dose of steroids has been placed. 7. Medical noncompliance. This patient has not been taking any kind of medication for his diabetes. 8. Electrolyte imbalance seems to be stable. I will continue with the same management. This patient seems to be doing better. I will continue with same management. I will increase the dose of the insulin in the morning. He needs to be on antibiotics for at least 2 weeks and he has decided to stay in [place] since this patient is from [place]. cc: Yousif Partida MD
--- NOTE | 2019-02-24 20:04 | INFECTIOUS DISEASE CONSULT REP ---
DATE: 02/24/2019 CONCLUSION: Mr. Sinha has a an oxacillin-sensitive Staphylococcus aureus bacteremia with concern for a possible right shoulder septic arthritis, being followed by Dr. Clemons. RECOMMENDATIONS: He is currently on vancomycin which we will discontinue, and start him on Ancef 2 g IV every 8 hours, which he will need for a total of 2 weeks. If the patient does have a septic shoulder then he will need [address] Yepez has reordered cultures today, and hopefully, those will be sterile, and will represent the first day of a 14 or 42 day treatment plan. DISCUSSION: Mr. Sinha is a mainly [place]-speaking patient from [place]. 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 He has a known history of diabetes but states he does not check his sugars or take any medications. There was some confusion from him about how to answer some of my questions through the interpretation line, but we did the best we could to get what information he could give us. Some of the information was taken from the patient's chart. PAST MEDICAL HISTORY/REVIEW OF SYSTEMS: Constitutional: He states he has had a fever at home, but no appetite changes or weight loss. HEENT: He denies any issues with his vision; however, his hearing is diminished. Cardiovascular: He denies any chest pain or shortness of breath. Respiratory: He has had no cough or wheezing. Gastrointestinal: Denies any abdominal pain or diarrhea. He does have some constipation. Genitourinary: He denies any dysuria or flank pain. Musculoskeletal: He does have pain and decreased range of motion to the right upper extremity, particularly the right shoulder. Integumentary: No rashes or lesions. Neurologic: He denies any seizures or strokes. He does have numbness and tingling to the fingers of the right hand. Endocrine: He does have a history of diabetes, but no thyroid issues. Psych: No depression or anxiety. PAST MEDICAL HISTORY: Includes diabetes mellitus and apparently previous myositis. PAST SURGICAL HISTORY: Appendectomy. DIAGNOSTIC STUDIES: Today his white count is 11.65, hemoglobin 14.7, platelet count 322,000. Creatinine 0.5, estimated GFR is greater than 60. On admission his total bilirubin is 0.17, AST 9, ALT 14, alkaline phosphatase 168. C-reactive protein 107.56. Urine was negative for bacteria and less than 10 WBCs. Both blood cultures grew an oxacillin-sensitive Staphylococcus aureus on admission, and today, the blood cultures have been redrawn and are preliminary. X-ray of his right shoulder shows no acute disease. Pulmonary arteriogram was negative for PE. Chest x-ray on admission showed no acute abnormalities. EKG on admission showed sinus tachycardia. Echocardiogram does not have any mention of mass or thrombus on any valves. 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 He states he has smoked for about 2 years, but quit 8 years ago. He does drink beer occasionally with his last beer being about 2 months ago. No illicit drugs. FAMILY HISTORY: Positive for diabetes in his father. ALLERGIES: There are no known allergies. HOME MEDICATIONS: He states he does not take any medications at home, although prednisone and naproxen were listed on his home medications. PHYSICAL EXAMINATION: Vital Signs: Temperature is 97.9 degrees, pulse rate 86, respiratory rate 18, blood pressure 129/76, O2 saturation 98% on room air. Looking back, he has been afebrile this admission. The patient is 5 feet 3 inches and 73.9 kg. General: This is a middle-aged, fairly healthy-appearing gentleman, lying in the bed, currently in no acute distress. HEENT: Atraumatic, normocephalic. Oral mucous membranes are pink and moist. Conjunctivae are pink. Neck: Supple. Trachea is midline. Cardiovascular: Heart rate and rhythm are regular. Normal sinus rhythm on the monitor. Respiratory: Lung sounds are clear to auscultation bilaterally. No work of breathing is noted. Abdomen: Soft, round, nontender, nondistended. Bowel sounds are active. Integumentary: Skin is warm, dry, and intact. Neurologic: He is awake, alert, oriented. There is some decrease in mobility to his right upper extremity. Paresthesias noted to the right hand. Thank you for allowing us to see Mr. Sinha. Dictated by EDMUNDO Sprague for Musa Campuzano MD cc: Musa Campuazno MD [facility] SHORERicardo
[2019-02-25] MEDS: NORCO-7.5 PO PRN ×2 (01:45→11:26)
[2019-02-25] MEDS: KEFZOL 2 GM/D5W 2 GM/50 ML IVPB IV SCH ×2 (04:10→13:51)
[2019-02-25] MEDS ORDERED: HUMULIN 70/30 SUBQ SCH (07:00)
[2019-02-25] MEDS: PRILOSEC PO SCH (07:05)
[2019-02-25] MEDS: HUMULIN R SUBQ SCH ×3 (07:06→16:26)
[2019-02-25 07:32] LABS: BASO# 0.05 X1000 (0.0-0.2); BASO% 0.5 % (0.0-0.8); EOS# 0.24 X1000 (0.0-0.7); EOS% 2.2 % (0.0-10.0); HEMATOCRIT 42.6 % (42.0-52.0); HEMOGLOBIN 14.4 g/dL (14.0-18.0); IMM GRAN# 0.24 X1000 (0.0-0.04); IMM GRAN% 2.2 % (0.0-0.5); LYMPH% 17.2 % (20.5-51.1); MCH 30.9 PG (27-31); MCHC 33.8 g/dL (33-37); MCV 91.4 FL (81-99); MONO# 1.54 X1000 (0.11-0.59); MONO% 13.9 % (1.7-9.3); MPV 10.4 FL (7.4-10.4); NEUT# 7.07 X1000 (1.4-6.5); PLT 327 X1000 (130-400); RBC 4.66 XMIL (4.7-6.1); WBC 11.04 X1000 (4.8-10.8)
[2019-02-25 07:51] LABS: AGAP 13; BUN 13 mg/dL (8-22); CALCIUM 8.6 mg/dL (8.8-10.2); CHLORIDE 98 mmol/L (98-107); COSMO 282; CREATININE 0.5 mg/dL (0.7-1.2); ESTIMATED GFR > 60; GLUCOSE 172 mg/dL (70-104); POTASSIUM 3.4 mmol/L (3.5-5.1); SODIUM 139 mmol/L (136-145); TCO2 28 mmol/L (25-35)
[2019-02-25 07:58] LABS: MAGNESIUM 1.9 mg/dL (1.5-2.7); PHOSPHORUS 3.1 mg/dL (2.7-4.5)
[2019-02-25] MEDS: NAPROSYN PO SCH (08:57)
[2019-02-25] MEDS ORDERED: KLOR-CON PO ONE (13:47)
--- NOTE | 2019-02-25 14:22 | Diag Imaging Result Doc PS360 ---
EXAM: CT THORAX W/CONTRAST 02/25/2019 HISTORY: R septic sternoclavicular shoulder joint arthritis TECHNIQUE: This exam was performed using automated exposure control, adjustment of mA or kV according to patient size, and/or use of iterative reconstruction technique. COMMENT: The current study is compared with 02/17/2019. There is soft tissue swelling around the medial right clavicle head particularly anteriorly. This obscures the borders of the pectoralis muscle on the right and there is an apparent air bubble or bubbles in this collection. Compared to the previous examination the soft tissue swelling and the presence of possible air bubbles was not noted on the previous study. There is no definite evidence of bony erosion. The possibility of septic arthritis in the sternoclavicular joint on the right cannot be excluded. There is a pleural effusion on the right which is gotten worse than on the previous study. This is only partially imaged as a limited study is performed over the area of interest. IMPRESSION: Fluid collections surrounding the medial right clavicle and sternoclavicular joint. The possibility of septic arthritis cannot be excluded. Electronically signed by Junior Velarde 02/25/2019 2:20 PM
[2019-02-25 16:19] VITALS: BP 122/74
[2019-02-25] MEDS: HUMULIN 70/30 SUBQ SCH (16:27)
--- NOTE | 2019-02-25 20:52 | INFECTIOUS DISEASE PROGRESS NO ---
DATE: 02/25/2019 PRESENT ILLNESS: The patient has an oxacillin sensitive Staphylococcus aureus bacteremia, and unfortunately on repeat blood cultures, he is growing gram-positive cocci, despite being on antibiotics. The patient has, on the right side, a very severe sternoclavicular joint arthritis. He may well have infection in the shoulder as well. MEDICATIONS: The patient is on Ancef 2 g IV every 8 hours. PHYSICAL EXAMINATION: Vital Signs: Temperature is 97.9 degrees, pulse 81, respirations 18, blood pressure 121/64. General: This is a somewhat ill-appearing, middle-aged male. He does seem to be having quite a bit of pain in his right sternoclavicular joint and also in the shoulder. Head/eyes/ears/nose/throat: He can hear my spoken words and see near objects. He does not have any white coating on his tongue. Neck: No pain with movement. Lungs: Clear to auscultation. Cardiovascular: Regular heart rate. Abdomen: Soft and nontender. Neurologic: The patient is alert. He is able to ambulate. There is no tremor. Integument: No rash. LAB AND X-RAY: CBC shows a white count of 11,040, hemoglobin 14.4, platelet count 327,000. Creatinine is 0.5. GFR is greater than 60. The patient's initial blood cultures grew oxacillin sensitive Staphylococcus aureus. Repeat blood cultures are growing gram-positive cocci which almost certainly will be Staphylococcus aureus also. ASSESSMENT AND PLAN: I am going to switch the patient to nafcillin. I have ordered a CT scan of the chest to include the right sternoclavicular joint and right shoulder as well. I am going to try to call and get the patient transferred to [facility], especially with the care of the CV Surgery people to see the patient. COMORBIDITIES: The patient is a diabetic He denied using illicit drugs, and he also stated that he stopped smoking cigarettes 8 years ago. He said he did occasionally drink beer. cc: Musa Campuzano MD
--- NOTE | 2019-02-26 14:37 | DISCHARGE SUMMARY ---
ADMISSION DATE: 02/21/2019 DISCHARGE DATE: 02/25/2019 DISCHARGE DIAGNOSES: 1. Sepsis due to bacteremia due to MSSA infection, with possible septic arthritis, right shoulder and sternoclavicular joint. 2. Bacteremia due to MSSA. 3. Diabetic ketoacidosis, resolved. 4. Uncontrolled type 2 diabetes with a hemoglobin A1c of 12.5. 5. Dehydration, resolved. 6. Medical noncompliance. 7. Electrolyte imbalance, resolved. PROCEDURES PERFORMED: Chest x-ray dated 02/21/2019, impression: No acute abnormality. Pulmonary arteriogram dated 02/21/2019, impression: No pulmonary emboli. Shoulder x-ray dated 02/22/2019, impression: No acute disease. Echocardiogram dated 02/22/2019, ejection fraction 65 to 70 percent. Pulmonary pressure estimated at [address] scan dated 02/25/2019, impression: Fluid collection surrounding the medial right clavicle and sternoclavicular joint, the possibility of septic arthritis cannot be excluded. HOSPITAL COURSE: A 58-year-old male presented to the emergency department, was admitted on 02/21/2018 with right-sided chest pain that goes into his shoulder, he was seen in [place] a week before admission and then 4 days ago, he came in here to [facility]. He was told that he had chest wall tenderness and myositis per them in [place], laboratory in this emergency room showed that actually this patient was in DKA. The patient states that he did know that he has diabetes. However, he is not taking any kind of treatment. His hemoglobin A1c was 12.5. He was admitted to the PVC unit. He was placed on an insulin drip, his anion gap normalized and after that, I put him on insulin 70/30, and his blood sugars were doing much better, but he was complaining of shoulder pain so I consulted the Orthopedic Surgery Department and they tried to aspirate some fluid from the shoulder, but they did not get any so they put some steroids in it, we will continue treating this patient with antibiotics because we found this patient to be bacteremic with gram-positive cocci. He was placed initially on vancomycin and then I consulted Infectious Disease Department due to MSSA bacteremia, today we noticed that this patient's sternoclavicular joint was more inflamed and he was still complaining of right acromioclavicular joint pain as well. Infectious Disease Department ordered a CT scan of the chest that showed fluid collection surrounding the medial right clavicle and sternoclavicular joint. The possibility of septic arthritis cannot be excluded, Dr. Campuzano from Infectious Disease Department contacted Dr. Adams and actually talked to Kymberly Sharma, his nurse practitioner, Dr. Adams is a cardiothoracic surgeon and we ask him to see if he can see the patient and probably take care of this fluid collection on his chest, and he has accepted to evaluate this patient. Subsequently I contacted [facility] transfer center and I discussed the case with the hospitalist, the patient like I said has been accepted. They have a room for him and he will be transferred to [facility] for an evaluation and management. At the time of discharge, this patient was in a stable medical condition tolerating p.o. and actually vital signs were stable as well as the laboratory. OBJECTIVE: Vitals: Temperature 98.2 degrees, pulse 88, respiratory rate 19, blood pressure 122/74, oxygen saturation 94% on room air. HEENT: Head normocephalic, no trauma, PERRLA. Neck: Supple. No JVD. No masses. Central trachea. Chest: Clear to auscultation. No wheezing. No rales. Pain at the level of the sternoclavicular joint and also basically all the clavicular area with also painful to palpation and mobilization. Abdomen: Soft, nontender, nondistended. No hepatosplenomegaly. Extremities: No edema, no clubbing, no cyanosis. Neurological: The patient is alert and oriented x3. No focal deficits. LABORATORY: WBC 11.0, hemoglobin 14.4, hematocrit 42.6, platelets 327,000, sodium 139, potassium 3.4, chloride 98, bicarbonate 28, BUN 13, creatinine 0.5, glucose 172, calcium 8.6, magnesium 1.9, phosphorus 3.1. ASSESSMENT AND PLAN: This patient will be transferred to [facility]. He has been accepted already and he already has a room, Dr. Adams will be his cardiothoracic surgeon. Hopefully, he will be seen today and we will help this patient with his problem. During the course of this hospitalization, he has been on antibiotics and he seems to be more stable. Time taking care of the patient and trying to transfer this patient and discharging this patient, around 40 minutes. cc: Yousif Partida MD
== END 2019-02-25 19:30 | disposition short-term general hospital (02) | DRG 871 ==
LOC: ED 12:45 → SUATTDRO 21:40 → 2N 21:40 → 3N 02-23 11:09
PROVIDERS: ATTEND Internal Medicine